=== PATIENT | female | born 1995 | race American Indian/Alaskan Native ===

== ENCOUNTER 2017-02-27 22:02 | Emergency (ER) | payer OTHER ==
[2017-02-27 22:08] VITALS: BP 138/101
[2017-02-27] MEDS ORDERED: Lactated Ringers 1,000 ML IV ONE (22:26)
[2017-02-27] MEDS ORDERED: Sodium Chloride 0.9% 10 ML Syringe FLUSH PRN (22:26)
[2017-02-27] MEDS ORDERED: Ondansetron 4 MG/2 ML SDV IVPUSH ONE (22:26)
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
[2017-02-27] MEDS ORDERED: Sodium Chloride 0.45% 1,000 ML IV SCH (23:00)
[2017-02-28] MEDS ORDERED: Potassium Chloride 20 MEQ Tab.ER PO ONE (01:01)
[2017-02-28] MEDS ORDERED: Acetaminophen Soln 650 MG/20.3 ML UD Cup PO ONE (01:03)
[2017-02-28] MEDS ORDERED: Acetaminophen 325 MG Tab PO ONE (01:09)
[2017-02-28] MEDS ORDERED: Acetaminophen 325 MG Tab ONE (01:09)
--- NOTE | 2017-02-28 08:47 | CR ---
Right hand: Three views of the right hand were obtained. Comparison: No previous study. Joint spaces are maintained. No fracture, dislocation or other bony abnormality is seen. Impression: 1. No acute bony abnormality is identified on right hand exam. Diagnostic code #1
--- NOTE | 2017-02-28 08:47 | CT ---
Head CT Technique: Multiple axial sections through the brain were obtained. Intravenous contrast was not utilized. Comparison: No previous intracranial imaging. Findings: Ventricles along with basal cisterns and sulci over the convexities are within normal limits. No abnormal parenchymal densities are seen. No evidence of intracranial hemorrhage. No midline shift or mass effect is seen. Bone window settings were reviewed which show no discrete calvarial abnormality. Small air-fluid level in noted within the right maxillary sinus. Minimal areas of mucosal thickening are noted within the ethmoid sinuses and left maxillary sinus. Impression: 1. Small air-fluid level within the right maxillary sinus with mild areas of mucosal thickening within the ethmoid and left maxillary sinus. These findings are likely incidental. 2. No acute intracranial abnormality is identified on noncontrast head CT study. Diagnostic code #2 I agree with preliminary report issued by [facility] (preliminary report dictated on 02/28/17, 1:56 AM Central Time)
--- NOTE | 2017-02-28 08:47 | CT ---
CT facial bones Technique: Multiple axial sections through the facial bones were obtained. Reconstructed coronal and sagittal images were reviewed. Hypoplastic left maxillary sinus is seen which is developmental. Small air-fluid level and mild mucosal thickening noted within the right maxillary sinus. Mild mucosal thickening seen within the hypoplastic left maxillary sinus as well as within both sides of the ethmoid sinus. Right and left globes are symmetric. Possible dental caries are noted within left side of the mandibular molars. No facial bone fracture is identified. Impression: 1. Sinus findings as noted above. Air-fluid level could represent pre-existing sinusitis or retained secretions. Allergic sinusitis is also possible. 2. Dental caries are seen within several left-sided mandibular molars. 3. No acute facial bone fracture is identified. Diagnostic code #3 I mostly agree with preliminary report issued by [facility], several additional findings which are likely incidental as noted above (preliminary report dictated on 02/28/17, 1:57 AM Central Time)
--- NOTE | 2017-02-28 08:47 | CT ---
CT cervical spine Technique: Multiple axial images were obtained from above C1 inferiorly to the top of T2. Reconstructed sagittal and coronal images were reviewed. Findings: Visualized mastoid sinuses and middle ear cavities are clear. Posterior skull base is intact. Vertebral body heights and disc spaces are maintained. Vertebral bodies and posterior arches are intact with no fracture being identified. No abnormal subluxation is seen on the reconstructed sagittal images. Impression: 1. No acute abnormality is identified on CT study of the cervical spine. Diagnostic code #1 I agree with preliminary report issued by [facility] (preliminary report dictated on 02/28/17, 1:55 AM Central Time)
== END 2017-02-28 01:15 ==
LOC: JD.ED 22:02 → SUPCPDRO 22:02 → JD.ED 02-28 01:15
DX: S09.90XA Unspecified injury of head, initial encounter (principal); S60.221A Contusion of right hand, initial encounter; F10.129 Alcohol abuse with intoxication, unspecified; Q28.9 Congenital malformation of circulatory system, unspecified; Z79.899 Other long term (current) drug therapy; Y04.0XXA Assault by unarmed brawl or fight, initial encounter
CPT/HCPCS: 36415; 70450; 70486; 72125; 73130; 80053; 84703; 85025; 96361; 96374; 99284; A9270; G0480; J2405; J7050; J7120; 99285-25